=== PATIENT | male | born 1975 | race African-American/Black ===

== ENCOUNTER 2020-06-02 12:11 | Emergency (ER) | payer SELFPAY ==
[~2020-06-02] VITALS: Ht 175.3 cm; Wt 108.0 kg
[2020-06-02 12:15] VITALS: BP 143/76
[2020-06-02] MEDS ORDERED: HYDROcodone/APAP 5/325MG 1 TAB TABLET PO ONE (13:00)
--- NOTE | 2020-06-02 13:38 | PHYS DOC ---
Past Medical History Past Medical History: No Pertinent History Past Surgical History: No Surgical History Smoking Status: Current Every Day Smoker Alcohol Use: None General Adult EDM: Chief Complaint: INSECT BITE HPI: HPI: Patient is a 44 year old AA male, accompanied by his significant other, who presents to the emergency department with complaints of an infected bite in the left side of his neck that has been draining pus since yesterday. Patient repo rts that the symptoms started approximately 4 days ago. He denies any fever, body aches, chills, nausea, vomiting, abdominal pain, shortness of breath, or difficulty swallowing. He currently rates the pain a 5 out of 10 on the pain scale, he reports that the pain does not radiate, it increases with palpation. He denies any alleviating factors. Review of Systems: Review of Systems: Constitutional: Denies fever or chills. [] HENT: Denies nasal congestion or sore throat. [] Respiratory: Denies cough or shortness of breath. [] GI: Denies abdominal pain, nausea, vomiting, or diarrhea. [] Musculoskeletal: Denies back pain or joint pain. [] Integument: See HPI Neurologic: Denies headache, focal weakness or sensory changes. [] Lymphatic: Denies swollen glands. [] Psychiatric: Denies depression or anxiety. [] Heart Score: Risk Factors: Risk Factors: DM, Current or recent (<one month) smoker, HTN, HLP, family history of CAD, obesity. Risk Scores: Score 0 - 3: 2.5% MACE over next 6 weeks - Discharge Home Score 4 - 6: 20.3% MACE over next 6 weeks - Admit for Clinical Observation Score 7 - 10: 72.7% MACE over next 6 weeks - Early Invasive Strategies Current Medications: Current Medications Medications (Trade) Dose Ordered Sig/Martin Start Time Stop Time Status Last Admin Dose Admin Acetaminophen/ Hydrocodone Bitart (Lortab 5/325) 1 tab 1X ONCE 06/02/20 13:00 06/02/20 13:01 DC 06/02/20 12:58 1 TAB Allergies: Allergies: Allergies Coded Allergies Type Severity Reaction Last Updated Verified nut - unspecified Allergy Unknown 06/02/20 Yes Physical Exam: PE: Constitutional: Well developed, well nourished, no acute distress, non-toxic appearance, obese. [] HENT: Normocephalic, atraumatic, bilateral external ears normal, nose normal. [] Eyes: PERRLA, EOMI, conjunctiva normal, no discharge. [] Neck: Normal range of motion, supple, no stridor; right lateral cervical tenderness with large indurated area that is draining yellow pus.. [] Cardiovascular:Heart rate regular rhythm Lungs & Thorax: Respirations even and unlabored, no retractions, no respiratory distress, Respirations even and unlabored, no retractions, no respiratory distress Skin: Warm, dry, no erythema, no rash; 4 cm diameter indurated, erythemic, warm area with central pustule that is draining yellow pus [] Extremities: No cyanosis, ROM intact, no edema. [] Neurologic: Alert and oriented X 3, no focal deficits noted. [] Psychologic: Affect normal, judgement normal, mood normal. [] Current Patient Data: Vital Signs: Vital Signs Date Time Temp Pulse Resp B/P (MAP) Pulse Ox O2 Delivery O2 Flow Rate FiO2 06/02/20 12:58 12 95 Room Air 06/02/20 12:15 98.9 95 143/76 (98) 98.9 EKG: EKG: [] Radiology/Procedures: Radiology/Procedures: PROCEDURE: CT SOFT TISSUE NECK WO CONTRST CT soft tissue neck without contrast: Reason for examination: Abscess on left side of neck. Spider bite. Helical images were obtained through the neck with no contrast administered. Reconstruction was performed in sagittal and coronal planes. Exposure: One or more of the following individualized dose reduction techniques were utilized for this examination: 1. Automated exposure control 2. Adjustment of the mA and/or kV according to patient size 3. Use of iterative reconstruction technique. No abnormalities of seen at the orbits. The paranasal sinuses and mastoid air cells are clear. No acute bony abnormalities evident. No abnormality seen at the epiglottis. The vallecula and piriform sinuses show no gross abnormalities. Vocal cords are symmetric. The trachea shows no abnormality. The visualized portion of the esophagus shows no abnormality. The left sternocleidomastoid muscle superiorly appears to be slightly edematous and there is some soft tissue edema in the soft tissues over the muscle and in the skin at that site. There is also note made of a 1.6 cm circumscribed nodule in the posterior aspect of the left parotid gland superficially. This could represent a parotid tumor however considering the adjacent inflammatory changes related to spider bite, close follow-up is recommended. The right parotid gland and submandibular gland show no abnormalities. Multiple nonspecific lymph nodes are seen in the neck measuring up to 1.7 cm in size. Lung apices are clear. No acute abnormality seen in the cervical spine visualized. IMPRESSION: Edema in the superior aspect of the left sternocleidomastoid muscle and soft tissue superficial to the muscle with some associated skin thickening. 1.6 mm nodule posterior and superficially in the left parotid gland. A small tumor or abscess cannot be excluded however considering the adjacent inflammatory changes which are presumably related to the spider bite, clinical correlation and close follow-up is recommended. Multiple small lymph nodes seen in the neck bilaterally measuring up to 1.7 cm in size. Electronically signed by: Nalini Marie MD (06/02/2020 1:47 PM) [id number][] Course & Med Decision Making: Course & Med Decision Making Pertinent Labs and Imaging studies reviewed. (See chart for details) [] Dragon Disclaimer: Dragon Disclaimer: This electronic medical record was generated, in whole or in part, using a voice recognition dictation system. Departure Departure Impression: Primary Impression: Infected insect bite of neck Qualified Codes: S10.96XA - Insect bite of unspecified part of neck, initial encounter; L08.9 - Local infection of the skin and subcutaneous tissue, unspecified; W57.XXXA - Bitten or stung by nonvenomous insect and other nonvenomous arthropods, initial encounter Additional Impression: Cellulitis and abscess of neck Disposition: 01 HOME, SELF-CARE Condition: STABLE Patient Instructions: Cellulitis, [id number], Insect Bite, [id number] Additional Instructions: Fill the prescriptions and use them as directed. Recommend you apply warm moist heat to the area every 2-3 hours and as needed for relief of pain to help the infection drain. Follow-up with your primary care doctor or 1 of the offices below to have site rechecked. Return to the ER if symptoms worsen or you develop a fever. [facility] [address] [place] [address] [facility] [address] [place], [place] [id number] [address] [address] [facility] [address] [place] [address] [facility] [address] [place] [address] [facility] [address] [place] [address] [address] [place] [address] [facility] [facility] [facility] [address] [place] [address] [facility] [address] [place] [address] [facility] [address] [place] [address] Scripts Hydrocodone Bit/Acetaminophen (HYDROCODONE-APAP 5-325 ) 1 Tab Tablet 0.5-1 TAB PO PRN Q6HRS PRN for SEVERE PAIN 7-10 for 3 Days, #10 TAB 0 Refills Prov: TRISH GILL APRN 06/02/20 Clindamycin Hcl (CLINDAMYCIN HCL) 150 Mg Capsule 450 MG PO TID for 7 Days, #63 CAP 0 Refills Prov: TRISH GILL APRN 06/02/20 Justicifation of Admission Dx: Justifications for Admission: Justification of Admission Dx: N/A TRISH GILL APRN Jun 02, 2020 13:38
--- NOTE | 2020-06-02 13:50 | RAD ---
CT soft tissue neck without contrast: Reason for examination: Abscess on left side of neck. Spider bite. Helical images were obtained through the neck with no contrast administered. Reconstruction was performed in sagittal and coronal planes. Exposure: One or more of the following individualized dose reduction techniques were utilized for this examination: 1. Automated exposure control 2. Adjustment of the mA and/or kV according to patient size 3. Use of iterative reconstruction technique. No abnormalities of seen at the orbits. The paranasal sinuses and mastoid air cells are clear. No acute bony abnormalities evident. No abnormality seen at the epiglottis. The vallecula and piriform sinuses show no gross abnormalities. Vocal cords are symmetric. The trachea shows no abnormality. The visualized portion of the esophagus shows no abnormality. The left sternocleidomastoid muscle superiorly appears to be slightly edematous and there is some soft tissue edema in the soft tissues over the muscle and in the skin at that site. There is also note made of a 1.6 cm circumscribed nodule in the posterior aspect of the left parotid gland superficially. This could represent a parotid tumor however considering the adjacent inflammatory changes related to spider bite, close follow-up is recommended. The right parotid gland and submandibular gland show no abnormalities. Multiple nonspecific lymph nodes are seen in the neck measuring up to 1.7 cm in size. Lung apices are clear. No acute abnormality seen in the cervical spine visualized. IMPRESSION: Edema in the superior aspect of the left sternocleidomastoid muscle and soft tissue superficial to the muscle with some associated skin thickening. 1.6 mm nodule posterior and superficially in the left parotid gland. A small tumor or abscess cannot be excluded however considering the adjacent inflammatory changes which are presumably related to the spider bite, clinical correlation and close follow-up is recommended. Multiple small lymph nodes seen in the neck bilaterally measuring up to 1.7 cm in size. Electronically signed by: Nalini Marie MD (06/02/2020 1:47 PM) [facility]
[2020-06-02] MEDS ORDERED: HYDR-2761 PO (14:25)
[2020-06-02] MEDS ORDERED: CLIN150C14 PO (14:25)
== END 2020-06-02 14:30 | disposition home or self-care (01) ==
LOC: ER 12:11
DX: S10.86XA Insect bite of other specified part of neck, initial encounter (principal); L08.9 Local infection of the skin and subcutaneous tissue, unspecified; L02.11 Cutaneous abscess of neck; F17.200 Nicotine dependence, unspecified, uncomplicated; Z91.018 Allergy to other foods; W57.XXXA Bitten or stung by nonvenomous insect and other nonvenomous arthropods, initial encounter; Y93.89 Activity, other specified; Y92.89 Other specified places as the place of occurrence of the external cause; Y99.8 Other external cause status
CPT/HCPCS: 70490; 99284